=== PATIENT | male | born 1975 | race Caucasian/White ===

== ENCOUNTER 2017-07-15 12:38 | Outpatient (CLI) | payer OTHER | END 2017-07-15 17:00 | disposition home or self-care (01) | LOC: MRI 12:38 | DX: R51 Headache (principal); G43.909 Migraine, unspecified, not intractable, without status migrainosus | CPT/HCPCS: 70551 ==

== ENCOUNTER 2017-07-15 13:34 | Outpatient (CLI) | payer OTHER | END 2017-07-15 13:38 | disposition home or self-care (01) | LOC: RAD 13:34 | DX: M54.2 Cervicalgia (principal) ==

== ENCOUNTER 2019-06-16 08:58 | Outpatient (CLI) | payer OTHER | END 2019-06-16 09:09 | disposition home or self-care (01) | LOC: LAB 08:58 | DX: J11.1 Influenza due to unidentified influenza virus with other respiratory manifestations (principal); R05 Cough ==

== ENCOUNTER 2021-06-27 18:33 | Outpatient (CLI) | payer OTHER | END 2021-06-27 23:00 | disposition home or self-care (01) | LOC: LAB 18:33 | PROVIDERS: ATTEND Urology | DX: R97.20 Elevated prostate specific antigen [PSA] (principal) ==

== ENCOUNTER 2021-08-20 07:08 | Outpatient (CLI) | payer OTHER | END 2021-08-20 07:19 | disposition home or self-care (01) | LOC: SONOGRAMA 07:08 | PROVIDERS: ATTEND Urology | DX: R97.20 Elevated prostate specific antigen [PSA] (principal) ==

== ENCOUNTER 2024-08-09 08:46 | Outpatient (CLI) | payer OTHER | END 2024-08-09 15:15 | disposition home or self-care (01) | LOC: MRI 08:46 | DX: M50.321 Other cervical disc degeneration at C4-C5 level (principal) | CPT/HCPCS: 72141 ==